=== PATIENT | female | born 1975 | race Caucasian/White ===

== ENCOUNTER 2019-06-27 | Emergency (ER) | payer OTHER ==
[2019-06-27] MEDS ORDERED: GABAPENTIN100 MG PO (18:27)
[2019-06-27] MEDS ORDERED: FENTANYL25 MCG/HR TD (18:27)
[2019-06-27] MEDS ORDERED: PERCOCET 10/31 COMBO PO (18:28)
[2019-06-27] MEDS ORDERED: ASPIRIN325 MG PO (18:29)
[2019-06-27] MEDS ORDERED: PRENATAL1 TA1 PO (18:29)
[2019-06-27 18:48] LABS: HEMOGLOBIN 14.2 g/dl (12.0-16.0); IMMATURE GRANULOCYTES 0.1 % (0.0-5.0); MEAN CELL VOLUME 99.5 fL CALC (80.0-100.0); MEAN CORPUSCULAR HGB 33.6 pG CALC (26.0-32.0); MEAN CORPUSCULAR HGB CONC 33.8 g/dL CAL (32.0-36.0); NEUT# 4.13 thou/uL (2.00-7.15); RED BLOOD COUNT 4.22 mill/uL (4.20-5.60); RED CELL DISTRI WIDTH 13.3 % (11.5-15.5)
[2019-06-27 19:16] LABS: ACT PARTIAL THROMBO TIME 28.8 SECONDS (20.0-32.5); INTERNATIONAL NORMALIZED RATIO 0.9 RATIO (0.7-1.3); PROTHROMBIN TIME 9.8 SECONDS (9.0-12.5)
[2019-06-27 19:17] LABS: ALBUMIN 4.4 g/dL (3.2-5.0); ALKALINE PHOSPHATASE 79 u/l (38-126); ANION GAP 17 (6-22 (CALC)); BILIRUBIN, TOTAL 0.4 mg/dL (0.0-1.4); BUN 9 mg/dL (7-17); BUN/CREATININE RATIO 16 (12-20 (CALC)); CARBON DIOXIDE 22 mmol/l (22-30); CHLORIDE 106 mmol/l (95-108); CREATININE 0.6 mg/dL (0.5-1.0); GFR > 60 ML/MIN (>=60 (CALC)); GFR FOR AFR.AMER. > 60 ML/MIN (>=60 (CALC)); POTASSIUM 4.1 mmol/l (3.5-5.1); SGOT/AST 27 u/l (14-36); SODIUM 141 mmol/l (137-146); TOTAL PROTEIN 7.5 g/dL (6.3-8.2)
== END 2019-06-27 20:03 | disposition home or self-care (01) | DRG 556 ==
PROVIDERS: Family Medicine
DX: M79.662 Pain in left lower leg (principal); M79.89 Other specified soft tissue disorders; L53.9 Erythematous condition, unspecified; F17.210 Nicotine dependence, cigarettes, uncomplicated

== ENCOUNTER 2019-08-20 22:06 | Emergency (ER) | payer OTHER ==
[~2019-08-20] VITALS: Ht 157.5 cm; Wt 72.7 kg
[~2019-08-20 22:06] MED LIST: ASPIRIN325 MG PO; FENTANYL25 MCG/HR TD; GABAPENTIN100 MG PO; PERCOCET 10/31 COMBO PO; PRENATAL1 TA1 PO
[2019-08-20 23:05] VITALS: BP 144/71
== END 2019-08-20 23:05 | disposition home or self-care (01) | DRG 125 ==
LOC: ED 22:06
PROC: 0HQ1XZZ Repair Face Skin, External Approach (ICD-10-PCS; principal; 2019-08-20)
DX: S01.111A Laceration without foreign body of right eyelid and periocular area, initial encounter (principal); S80.212A Abrasion, left knee, initial encounter; F17.210 Nicotine dependence, cigarettes, uncomplicated; W01.0XXA Fall on same level from slipping, tripping and stumbling without subsequent striking against object, initial encounter; Y92.008 Other place in unspecified non-institutional (private) residence as the place of occurrence of the external cause

== ENCOUNTER 2023-11-15 15:29 | Emergency (ER) | payer SELFPAY ==
[~2023-11-15] VITALS: Ht 157.5 cm; Wt 54.0 kg
[2023-11-15] VITALS (8 sets, daily range): BP systolic 108–125; BP diastolic 59–77
[2023-11-15] MEDS ORDERED: ONDANSETRON HCl 4 MG/2 ML SDV IV STA (15:45)
[2023-11-15] MEDS ORDERED: Pantoprazole Sodium 40 MG VIAL (Protonix) IV STA (15:45)
[2023-11-15] MEDS ORDERED: SODIUM CHLORIDE 0.9% 1,000 ML IV STA (15:45)
[2023-11-15 16:22] LABS: BASO% 0.2 % (0-3); IMMATURE GRANULOCYTES 0.6 % (0.0-5.0); LYMPH% 11.3 % (15-41); MEAN CORPUSCULAR HGB 41.6 pG CALC (26.0-32.0); MEAN CORPUSCULAR HGB CONC 33.8 g/dL CAL (32.0-36.0); MONO% 5.7 % (2-13); NEUT# 13.04 thou/uL (2.00-7.15); NEUT% 82.2 % (42-76); RED BLOOD COUNT 2.69 mill/uL (4.20-5.60); RED CELL DISTRI WIDTH 17.4 % (11.5-15.5)
[2023-11-15 16:26] LABS: HEMATOCRIT 33.1 % (37.0-47.0); HEMOGLOBIN 11.2 g/dl (12.0-16.0)
[2023-11-15 16:27] LABS: AMYLASE 59 u/l (30-110); BUN 3 mg/dL (7-17); BUN/CREATININE RATIO 8 (12-20 (CALC)); CARBON DIOXIDE 25 mmol/l (22-30); CREATININE 0.4 mg/dL (0.5-1.0); ESTIMATED GFR 124 ML/MIN (>=90 (CALC)); LIPASE 92 u/l (23-300); POTASSIUM 3.5 mmol/l (3.5-5.1); TOTAL PROTEIN 6.7 g/dL (6.3-8.2)
[2023-11-15 16:29] LABS: ALBUMIN 3.1 g/dL (3.2-5.0); ALKALINE PHOSPHATASE 799 u/l (38-126); ANION GAP 13 (6-22 (CALC)); BILIRUBIN, TOTAL 6.8 mg/dL (0.02-1.3); CHLORIDE 93 mmol/l (95-108); SGOT/AST 358 u/l (14-36); SODIUM 127 mmol/l (137-146)
[2023-11-15 16:57] LABS: URINE BLOOD DIPSTICK Negative (NEGATIVE); URINE GLUCOSE - DIPSTICK 100 mg/dL (NEGATIVE); URINE KETONE 15 mg/dL (NEGATIVE); URINE LEUK ESTERASE Negative (NEGATIVE); URINE NITRITE - DIPSTICK Negative (Negative); URINE PROTEIN - DIPSTICK 30 mg/dL (NEG-TRACE); URINE SPECIFIC GRAVITY 1.025; URINE UROBILINOGEN - DIPSTICK >=8.0 E.U./dL (0.2)
[2023-11-15 16:58] LABS: URINE COLOR Amber
[2023-11-15] MEDS ORDERED: MORPHINE SULFATE 4 MG/ML VIAL IV STA (17:09)
[2023-11-15] MEDS ORDERED: SODIUM CHLORIDE 0.9% 1,000 ML IV ONE (17:10)
[2023-11-15 17:22] LABS: URINE SQUAMOUS EPITHELIAL CELL FEW EPI/hpf (0-FEW)
[2023-11-15 17:23] LABS: URINE BACTERIA MODERATE hpf
[2023-11-15 19:03] LABS: INTERNATIONAL NORMALIZED RATIO 1.1 RATIO (0.7-1.3)
[2023-11-15 19:05] LABS: PROTHROMBIN TIME 10.8 SECONDS (9.0-12.5)
[2023-11-15] MEDS ORDERED: Pantoprazole Sodium 40 MG VIAL (Protonix) IV ONE (19:20)
[2023-11-15] MEDS ORDERED: ORPHENADRINE CITRATE 30 MG/ML AMP IV ONE (19:30)
[2023-11-15] MEDS ORDERED: ALPRAZolam 0.5 MG/TAB PO ONE (20:05)
== END 2023-11-15 21:00 | disposition short-term general hospital (02) | DRG 433 ==
LOC: ED 15:29
PROVIDERS: Nurse Practitioner
DX: K74.60 Unspecified cirrhosis of liver (principal); K92.2 Gastrointestinal hemorrhage, unspecified; R18.8 Other ascites; K52.9 Noninfective gastroenteritis and colitis, unspecified; Z72.0 Tobacco use
CPT/HCPCS: J2470; Q9967